=== PATIENT | male | born 2000 | race Caucasian/White ===

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

== ENCOUNTER 2019-03-29 11:35 | Emergency (ER) | payer OTHER ==
[2019-03-29 12:58] VITALS: BP 116/60
--- NOTE | 2019-03-29 13:11 | UC ---
Throat Pain/Nasal Jeremías HPI - HPI Summary HPI Summary: 19 yo student with hx of frequent sinus infections, last treated with amoxicillin about 8 weeks ago. In the past, he has typically used augmentin. Remote sinus surgery. He does not have fever, but feels fatigued, and has progressive pain and headaches. Minimal cough, no shortness of breath. - History of Current Complaint Chief Complaint: UCRespiratory Stated Complaint: SINUSES Time Seen by Provider: 03/29/19 13:00 Hx Obtained From: Patient Onset/Duration: Gradual Onset, Lasting Weeks - 3 Severity: Moderate Pain Intensity: 5 Cough: Nonproductive Associated Signs & Symptoms: Positive: Sinus Discomfort, Nasal Discharge - Epiglottits Risk Factors Epiglottis Risk Factors: Negative - Allergies/Home Medications Allergies/Adverse Reactions: Allergies Allergy/AdvReac Type Severity Reaction Status Date / Time No Known Allergies Allergy Verified 03/29/19 12:53 PMH/Surg Hx/FS Hx/Imm Hx Previously Healthy: Yes - recurrent sinusitis. - Surgical History Surgical History: Yes Surgery Procedure, Year, and Place: T&A. Sinus surgery. Wrist reset - Family History Known Family History: Positive: Hypertension, Diabetes, Non-Contributory Negative: Cardiac Disease - Social History Occupation: Student Lives: Dormitory/Roommates Alcohol Use: Occasionally Substance Use Type: None Smoking Status (MU): Never Smoked Tobacco Have You Smoked in the Last Year: No Review of Systems All Other Systems Reviewed And Are Negative: Yes Constitutional: Positive: Fatigue ENT: Positive: Dental Pain, Nasal Discharge, Sinus Congestion. Negative: Sore Throat, Ear Ache Respiratory: Positive: Cough Cardiovascular: Positive: Negative Gastrointestinal: Positive: Negative Genitourinary: Positive: Negative Motor: Positive: Negative Is Patient Immunocompromised?: No Physical Exam Triage Information Reviewed: Yes Appearance: No Pain Distress, Ill-Appearing - congested, looks mildly unwell Vital Signs: Initial Vital Signs Temp 97.2 F 03/29/19 12:54 Pulse 74 03/29/19 12:54 Resp 20 03/29/19 12:54 BP 116/60 03/29/19 12:54 Pulse Ox 99 03/29/19 12:54 Vital Signs Reviewed: No Eye Exam: Normal ENT: Positive: Pharyngeal erythema, TMs normal Respiratory: Positive: Lungs clear, Normal breath sounds Cardiovascular: Positive: RRR, No Murmur Neurological Exam: Normal Psychological Exam: Normal Skin Exam: Normal Throat Pain/Nasal Course/Dx - Course Course Of Treatment: augmentin for sinusitis. - Differential Dx/Diagnosis Differential Diagnosis/HQI/PQRI: Pharyngitis, Sinusitis, URI Provider Diagnosis: Sinusitis Discharge ED - Sign-Out/Discharge Documenting (check all that apply): Patient Departure All imaging exams completed and their final reports reviewed: No Studies - Discharge Plan Condition: Stable Disposition: HOME Prescriptions: Amoxicillin/Clavulanate TAB* [Augmentin TAB 875*] 875 mg PO BID #20 tab Patient Education Materials: Sinusitis (ED) Referrals: No Primary Care Phys,NOPCP [Primary Care Provider] - Additional Instructions: Take full course of augmentin for treatment of sinusitis. You can use ibuprofen 600mg up to 4 times per day to control sinus pain, and you might add nasal steroids. - Billing Disposition and Condition Condition: STABLE Disposition: Home
== END 2019-03-29 13:19 | disposition home or self-care (01) ==
LOC: UCCORT 11:35
DX: J32.9 Chronic sinusitis, unspecified (principal)
CPT/HCPCS: 99212; G0463